=== PATIENT | female | born 1990 | race Caucasian/White ===

== ENCOUNTER 2025-03-08 09:26 | Emergency (ER) | payer MEDICAID ==
[~2025-03-08] VITALS: Ht 167.6 cm; Wt 63.8 kg
[~2025-03-08 09:26] MED LIST: FERR325T28 PO; HYDR-3686 PO; Lorazepam PO; SERT-434 PO; TRAZ-256 PO
--- NOTE | 2025-03-08 09:41 | Physician Documentation ---
History of Present Illness ~ Stated Complaint: ASTHMA AND RIB PAIN Time Seen by MD: 09:34 Medication Reconciliation Allergies: Coded Allergies: avocado (Verified Allergy, Severe, anaphylaxis, 05/04/24) peanut (Verified Allergy, Severe, anaphylaxis, 05/04/24) Sulfa (Sulfonamide Antibiotics) (Verified Allergy, Unknown, 05/03/24) Scheduled Ferrous Sulfate* (Ferrous Sulfate*), 1 TAB PO DAILY, (Reported) Sertraline HCl (Sertraline HCl), 1 TAB PO DAILY Trazodone HCl (Trazodone HCl), 1 TAB PO HS [Lorazepam*], 0.5 MG PO DAILY Scheduled PRN Hydroxyzine Hcl* (Atarax*), 50 MG PO BID PRN for anxiety Past Medical History Patient History: Anxiety disorder FATHER, Onset:Unknown MOTHER, Onset:Unknown FH: bipolar disorder FAMILY/OTHER, Onset:Unknown FH: depression FATHER, Onset:Unknown MOTHER, Onset:Unknown GRANDFATHER OR GRANDMOTHER, Onset:Unknown FH: schizophrenia FAMILY/OTHER, Onset:Unknown FAMILY/OTHER, Onset:Unknown Substance abuse MOTHER, Onset:Unknown Progress Results/Orders Results/Orders Orders - GRETA XIONG NP Cbc/Diff (03/08/25 09:34) Lipase (03/08/25 09:34) Hcg, Ur Ql (03/08/25 09:34) Urinalysis, Cult If Indicated (03/08/25 09:34) Electrocardiogram (03/08/25 09:34) Drug Screen, Urine (03/08/25 09:34) BMP (03/08/25 09:34) Hs Troponin I W Calculations (03/08/25 09:34) Pelvic Set Up (03/08/25 ) Ultrasound Pelvis W/Orwo Dplx (03/08/25 ) Chlam/Gc Amp Ur (03/08/25 09:34) Amanda Prep (Fungal Smear) (03/08/25 09:34) Syphilis Screen Poc (03/08/25 09:34) Departure Referrals: NO PRIMARY CARE PROVIDER (PCP) GRETA XIONG NP Mar 08, 2025 09:41
--- NOTE | 2025-03-08 09:54 | Physician Documentation ---
History of Present Illness ~ Stated Complaint: ASTHMA AND RIB PAIN Time Seen by MD: 09:34 HPI This 34-year-old female presents to the emergency department reporting that she fell onto her left ribs on a metal baby gate 10-12 days ago. She has had pain to the left ribs ever since. She also notes that she is having worsening of her chronic asthma during that same time period, but does not feel that she has had a viral illness. She is on Dupixent for her eczema and asthma. She denies any recent chills or fever, but does admit to feeling hot and cold. Denies nausea, vomiting, abdominal pain. Does have pain radiating to the left back and chest. Medication Reconciliation Allergies: Coded Allergies: avocado (Verified Allergy, Severe, anaphylaxis, 03/08/25) peanut (Verified Allergy, Severe, anaphylaxis, 03/08/25) Sulfa (Sulfonamide Antibiotics) (Verified Allergy, Unknown, 03/08/25) Scheduled Azithromycin (Azithromycin), 1 TAB PO UD Ferrous Sulfate* (Ferrous Sulfate*), 1 TAB PO DAILY, (Reported) Methylprednisolone (Medrol Dosepak), 0 PO UD Sertraline HCl (Sertraline HCl), 1 TAB PO DAILY Trazodone HCl (Trazodone HCl), 1 TAB PO HS [Lorazepam*], 0.5 MG PO DAILY Scheduled PRN Hydroxyzine Hcl* (Atarax*), 50 MG PO BID PRN for anxiety Past Medical History Patient History: Anxiety disorder FATHER, Onset:Unknown MOTHER, Onset:Unknown FH: bipolar disorder FAMILY/OTHER, Onset:Unknown FH: depression FATHER, Onset:Unknown MOTHER, Onset:Unknown GRANDFATHER OR GRANDMOTHER, Onset:Unknown FH: schizophrenia FAMILY/OTHER, Onset:Unknown FAMILY/OTHER, Onset:Unknown Substance abuse MOTHER, Onset:Unknown Review of Systems ROS As stated above in the HPI, otherwise all systems are reviewed and negative. Physical Exam Physical Exam From the door exam: General: Alert, no apparent distress. Extremities: Normal range of motion, no deformity. Neurologic: Oriented x4. Psychiatric: Normal mood and affect. Skin: Normal color, warm and dry. No edema, no ecchymosis. Full exam: Resp: Mildly diminished with no wheezing or rhonchi. No distress. CV: Heart with RRR no murmur. GI: Non-tender abd with active bowel sounds and no pain reported to palpation. Progress Results/Orders Results/Orders Orders - COBY XIONG CAPACITOR REPAIRER Uni Ribs With Pa Chest (03/08/25 ) Svn Treatment (03/08/25 10:42) Completed Orders - COBY XIONG CAPACITOR REPAIRER Uni Ribs With Pa Chest (03/08/25 ) Electrocardiogram (03/08/25 ) Ipratropium/Albuterol Nebule (Ipratrop/A (03/08/25 10:45) Medications Received in ER Medications (Trade) Dose Ordered Sig/Emmett Route PRN Reason Start Time Stop Time Status Last Admin Dose Admin (ipratrop/ albuterol 0.5-3(2.5) MG/3ml nebule) 3 ml ONCE ONCE NEB 03/08/25 10:45 03/08/25 10:46 DC 03/08/25 11:03 3 ML Vital Signs 03/08/25 03/08/25 03/08/25 09:54 11:05 11:11 Temp 98.7 Pulse 64 84 74 Resp 18 18 18 B/P (MAP) 98/37 Pulse Ox 100 98 100 O2 Delivery Room Air* Room Air* O2 Flow Rate 0 0 0 FiO2 21 21 EKG/XRAY/CT/US/VASC/MRI Chest X-Ray : Additional Comments [place] [id number] DIAGNOSTIC RADIOLOGY Patient: MERARY JOSHUA Medical Record: [id number] : 1990, Age: 34 Sex: Female Location: ER Patient Status: REG ER Service Date/Time: 03/08/25 Ordering Physician: COBY XIONG CAPACITOR REPAIRER Exam: UNI RIBS WITH PA CHEST EXAMINATION: DI UNI RIBS WITH PA CHEST INDICATION: LEFT RIB pain COMPARISON: None TECHNIQUE: Frontal view of the chest and multiple views of the left ribs were performed. FINDINGS: No pneumothorax, pulmonary edema, or consolidative infiltrates. The heart is not enlarged. There are bilateral breast implants. No displaced fractures are identified about the bony thorax. There are surgical clips in the left upper quadrant. IMPRESSION: No acute cardiopulmonary process. No evidence of rib fracture. Electronically Signed by:DEONTE MCKAY MD Date & Time: 03/08/25 1029 Dictated by: DEONTE MCKAY MD Dictation date and time: 03/08/25 1029 Primary Care Provider: NO PRIMARY CARE PROVIDER cc: COBY XIONG CAPACITOR REPAIRER ~ Medical Decision Making Additional information obtaine: old records Findings Patient is a good historian. Differential Dx:Considerations: Include: Other Differential Diagnosis No rib fracture or PNA on CXR. Patient was given duoneb with some reported relief of symptoms. Toradol 15 mg IM for pain. RX for azithromycin and medrol dose pack to pharmacy. Most Likely Diagnoses: Rib fracture (non-displaced or minimally displaced): This is the most probable diagnosis given the mechanism of injury (fall onto a metal gate), persistent localized pain at 12 days post-injury, and pain radiating into the chest and back. Rib fractures are frequently associated with blunt thoracic trauma, and pain typically persists for weeks as the fracture heals. The absence of fever makes infectious complications less likely at this stage. Non-displaced fractures may not be visible on initial chest radiographs but can be detected on CT imaging. [1] Intercostal muscle strain or chest wall contusion: Blunt trauma to the ribs commonly causes soft tissue injury to the intercostal muscles and chest wall without fracture. Pain from muscle strain can persist for 1-2 weeks and is exacerbated by movement, deep breathing, and coughingall of which would worsen asthma symptoms. [1] Costochondritis (post-traumatic): Trauma to the anterior chest wall can cause inflammation of the costochondral or chondrosternal joints, producing reproducible tenderness on palpation over the costal cartilages. While costochondritis is typically self-limited, post-traumatic inflammation can persist for weeks and cause pleuritic chest pain that worsens with deep breathing. [2] Asthma exacerbation secondary to pain-limited ventilation: The worsening asthma symptoms are likely related to pain-induced shallow breathing and reduced chest wall movement, which can lead to atelectasis, mucus plugging, and bronchospasm. Patients with rib injuries often splint their breathing to avoid pain, creating a cycle of hypoventilation and worsening respiratory symptoms. Additionally, the patient's asthma may be exacerbated by concurrent viral upper respiratory infection or environmental triggers. [3] Pulmonary contusion (delayed presentation): Although pulmonary contusion typically manifests within hours of injury and peaks at 72 hours, symptoms can persist for approximately 7 days. At 12 days post-injury, residual symptoms from pulmonary contusion would be unusual but possible if the initial injury was significant. The worsening asthma symptoms could reflect ongoing parenchymal inflammation or secondary pneumonia. [4] Most Important Not to Miss Diagnoses: Delayed pneumothorax or enlarging pneumothorax: Rule out with chest radiograph (posteroanterior and lateral views) looking for visceral pleural line, absent lung markings peripherally, and deep sulcus sign on supine films. Virtually all patients with spontaneous pneumothorax have ipsilateral pleuritic chest pain or acute dyspnea, and physical examination may reveal decreased breath sounds, hyperresonance to percussion, and diminished fremitus on the affected side. While most traumatic pneumothoraces present acutely, delayed presentation can occur, particularly if the initial injury was small. The worsening asthma symptoms could represent progressive air trapping or tension physiology. If jacque st X-ray is equivocal and clinical suspicion remains high, obtain CT chest. [5] Post-traumatic empyema or complicated parapneumonic effusion: Rule out with chest radiograph looking for pleural effusion, followed by thoracic ultrasound or CT chest with contrast if effusion is present. Any significant accumulation of fluid in the pleural space should be sampled by thoracentesis. The absence of fever does not exclude pleural infection, particularly in the subacute setting (12 days post-injury). Look for signs of systemic infection including tachycardia, leukocytosis, and elevated inflammatory markers (CRP, ESR). The worsening respiratory symptoms could indicate developing pleural infection, though the 12-day timeline and absence of fever make this less likely than other diagnoses. [6] Splenic injury with delayed rupture or subcapsular hematoma: Rule out with CT abdomen and pelvis with IV contrast, which is the gold standard for detecting splenic pathology. The left-sided location of pain radiating into the back raises concern for referred pain from splenic injury (Kehr's sign). While most splenic injuries present acutely, delayed rupture can occur days to weeks after trauma. Assess for signs of intra-abdominal bleeding including tachycardia, hypotension, left upper quadrant tenderness, and peritoneal signs. Check complete blood count for anemia and serial hemoglobin if splenic injury is suspected. [7] Pulmonary embolism: Rule out with D-dimer testing if low-risk, or proceed directly to CT pulmonary angiography if [id number] risk. While the mechanism (fall) does not suggest classic PE risk factors, the patient may have had reduced mobility due to pain over the past 12 days, increasing thrombotic risk. The worsening dyspnea and chest pain could represent PE, though the temporal relationship to trauma and localized nature of pain make this less likely. Assess for tachycardia, hypoxia, and signs of right heart strain. Acute coronary syndrome: Although the patient is young (34 years old), rule out with electrocardiogram and consider high-sensitivity troponin if there are cardiac risk factors or if the chest pain has atypical features. Chest tenderness on palpation or pain with inspiration markedly reduce the probability of ACS, but given the persistent and worsening nature of symptoms, cardiac evaluation may be warranted to avoid missing this diagnosis. [8] Departure Time of Disposition: 11:28 Disposition: HOME / SELF CARE / HOMELESS Impression: Primary Impression: Rib pain Additional Impression: Asthma exacerbation Discharge Instructions: Asthma Action Plan, Adult, Asthma Attack, Rib Contusion Additional Instructions: See primary care provider soon to discuss management of your asthma. Complete the Medrol dose pack and azithromycin as prescribed. Please return if worse. Referrals: NO PRIMARY CARE PROVIDER (PCP) Prescriptions Azithromycin (Azithromycin) 250 Mg Tablet 1 TAB PO UD for 5 Days, #6 TAB 2 the first day followed by 1 for days 2-5 Prov: COBY XIONG NP 03/08/25 Methylprednisolone (Medrol Dosepak) 4 Mg Tab.ds.pk 0 PO UD, #21 TAB 0 Refills take 6 Pills Day 1, 5 Pills Day 2, 4 Pills Day 3, 3 Pills Day 4, 2 Pills Day 5 and 1 pill Day 6 Prov: COBY XIONG NP 03/08/25 Education Educated: Patient Educated regarding: diagnosis, treatment, prognosis, need for follow up Signature Scribe Signature: x Attestation: The note accurately reflects work and decisions made by me.Coby Rodrigues NP 03/08/25 11:31 COBY XIONG NP Mar 08, 2025 09:54
--- NOTE | 2025-03-08 10:01 | ELECTROCARDIOGRAPH REPORT ---
[facility] Test Date: 2025-03-08 Test Time: 09:53:54 Pat Name: MERARY JOSHUA Department: [facility]- Patient ID: [facility]-[id number] Room: Gender: F Taper Operator: : 1990 Requested By: GRETA XIONG Order Number: [id number] Reading MD: Dr. ZACHARY Bender Measurements Intervals [place] Rate: 60 P: 66 NM: 120 QRS: 91 QRSD: 85 T: 89 QT: 425 QTc: 425 Interpretive Statements Sinus rhythm Borderline right axis deviation Nonspecific T abnrm, anterolateral leads ST elev, probable normal early repol pattern Baseline wander in lead(s) V2,V3 Electronically Signed On 03-09-2025 16:52:[address] ZACHARY Bender Please click the below link to view image of tracing.
--- NOTE | 2025-03-08 10:31 | RADIOLOGY REPORT ---
[facility] EXAMINATION: DI UNI RIBS WITH PA CHEST INDICATION: LEFT RIB pain COMPARISON: None TECHNIQUE: Frontal view of the chest and multiple views of the left ribs were performed. FINDINGS: No pneumothorax, pulmonary edema, or consolidative infiltrates. The heart is not enlarged. There are bilateral breast implants. No displaced fractures are identified about the bony thorax. There are surgical clips in the left upper quadrant. IMPRESSION: No acute cardiopulmonary process. No evidence of rib fracture.
[2025-03-08] MEDS: ipratropium/albuterol 3ml nebule NEB ONE (11:03)
[2025-03-08 11:05] VITALS: PULSE 84; RESP 18; O2SAT 98
[2025-03-08 11:11] VITALS: PULSE 74; RESP 18; O2SAT 100
[2025-03-08] MEDS ORDERED: AZIT-21 PO (11:30)
[2025-03-08] MEDS ORDERED: METH4TAB81 PO (11:30)
[2025-03-08] MEDS: ketorolac trometh 15mg/ml vial 15 MG/ML ML IM ONE (11:53)
[2025-03-08 12:22] VITALS: BP 116/80; PULSE 77; RESP 18; TEMP 98.7
== END 2025-03-08 12:28 | disposition home or self-care (01) ==
LOC: ER 09:27
DX: J45.901 Unspecified asthma with (acute) exacerbation (principal); R07.89 Other chest pain; F41.9 Anxiety disorder, unspecified; Z91.010 Allergy to peanuts; Z88.2 Allergy status to sulfonamides; Z91.018 Allergy to other foods; Z79.899 Other long term (current) drug therapy
CPT/HCPCS: 71101; 93005; 94640; 96372; 99283; J1885; 94760